=== PATIENT | male | born 1950 | race African-American/Black ===

== ENCOUNTER 2021-05-05 18:48 | Emergency (ER) | payer MEDICARE ==
[~2021-05-05] VITALS: Ht 172.7 cm; Wt 85.7 kg
[~2021-05-05 18:48] MED LIST: DIAZ5TAB PO; HYDR-3164 PO; METO25TA4 PO
[2021-05-05] MEDS ORDERED: LABETALOL 20 MG/4 ML DISP.SYRIN. IVP ONE ×2 (18:58→19:30)
[2021-05-05] MEDS ORDERED: IV NORMAL SALINE 1000ML BAG 1,000 ML IV SCH (19:00)
[2021-05-05 19:24] LABS: BASO % 1 % (0-3); CALCIUM 9.5 mg/dL (8.5-10.1); CREATININE 1.6 mg/dL (0.7-1.3); EOS # 0.2 x10^3/uL (0.0-0.7); EOS % 4 % (0-3); GFR 51.8; HEMOGLOBIN 14.2 g/dL (13.0-17.5); LYMPH # 1.9 x10^3/uL (1.0-4.8); LYMPH % 35 % (24-48); MEAN CORPUSCULAR HEMOGLOBIN 31 pg (25-35); MEAN CORPUSCULAR HGB CONC 33 g/dL (31-37); MEAN CORPUSCULAR VOLUME 93 fL (79-100); MONO # 0.6 x10^3/uL (0.0-1.1); MONO % 11 % (0-9); NEUT # 2.7 x10^3/uL (1.8-7.7); NEUT % 49 % (31-73); PLATELET COUNT 197 x10^3/uL (140-400); RED BLOOD COUNT 4.64 x10^6/uL (4.30-5.70); RED CELL DISTRIBUTION WIDTH 13.6 % (11.5-14.5); WHITE BLOOD COUNT 5.5 x10^3/uL (4.0-11.0)
[2021-05-05 19:25] LABS: PROTHROMBIN TIME PATIENT 14.6 SEC (11.7-14.0)
--- NOTE | 2021-05-05 19:25 | RAD ---
Exam: CT head INDICATION: Stroke TECHNIQUE: Sequential axial images through the head were obtained without the administration of IV co ntrast. Exposure: One or more of the following in the visualized dose reduction techniques were utilized for this examination: 1. Automated exposure control 2. Adjustment of the MA and/or KV according to patient size 3. Use of iterative of reconstructive technique Comparisons: 10/16/2015 FINDINGS: No focal parenchymal lesion or hemorrhage is identified. There is no midline shift or sulcal effaceme nt. Patchy hypodensity in the periventricular white matter particularly in the left frontal and parietal region. No acute vascular territory infarction is identified. Lane-white distinction is preserved. The ventricular system is within normal limits without compression hydrocephalus. The basal cisterns are well maintained. The visualized portions of the paranasal sinuses and mastoid air cells are well-pneumatized. No acute fractures. IMPRESSION: 1. Small vessel ischemic change particularly in the left frontal lobe, technically age indeterminate without recent prior exam. Difficult to exclude acute ischemia. 2. No intracranial hemorrhage. FOR INTERNAL CODING PURPOSES Critical result: Findings discussed with MILY MAYFIELD MD at 05/05/2021 7:18 PM. RESULT CODE: (C) Electronically signed by: Néstor Whitmore MD (05/05/2021 7:22 PM) [facility]
[2021-05-05] MEDS ORDERED: ALTEPLASE 7.7 MG IV ONE (19:30)
[2021-05-05] MEDS ORDERED: LABETALOL 20 MG/4 ML DISP.SYRIN. IVP PRN (19:30)
[2021-05-05] MEDS ORDERED: IV NORMAL SALINE 100ML 100 ML IV ONE (19:30)
[2021-05-05] MEDS ORDERED: ALTEPLASE IV ONE (19:30)
--- NOTE | 2021-05-05 19:35 | PHYS DOC ---
Past Medical History Past Medical History: Hypertension Past Surgical History: No Surgical History Smoking Status: Current Every Day Smoker Alcohol Use: None Drug Use: None Adult General Chief Complaint Chief Complaint: SLURRED SPEECH HPI HPI The patient is a 71-year-old male with a history of hypertension, noncompliant with his blood pressure medication per , and without other medical problems for which he takes daily medication. 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 The patient was in his normal state of health earlier today. About 30 minutes prior to arrival he was in the kitchen with his getting ready for dinner when he was witnessed to stop speaking normally. His speech previously was normal and fluent but suddenly he could not get his words out correctly. noticed a right-sided facial droop as well, also brand-new. He has never had similar symptoms in the past. She drove him immediately to the hospital POV. Upon initial evaluation here in the emergency department patient is alert and ambulatory with a somewhat shuffling gait. He is significantly dysarthric and aphasic, but able to answer some simple questions. He has a right-sided facial droop and seems to have a left gaze deviation as well. NIHSS 6. Blood glucose 103. Vital signs notable for marked hypertension with initial blood pressure of around 240/140. Patient given a push dose of labetalol and sent to the CT scanner where initial head CT was read without bleed. Case discussed in detail with Dr. Olguin of neurology who recommends proceeding with tPA if blood pressure can be reduced to the appropriate range. I had a detailed conversation with the patient's and medical decision maker regarding alteplase. We discussed risks of alteplase administration including risk of catastrophic bleeding, minor bleeding and anaphylaxis. After detailed consideration of the risks and benefits of alteplase, patient's made an informed decision to proceed with alteplase if possible. Nicardipine drip started and blood pressure down to an appropriate range. Therefore, alteplase bolus administered and alteplase infusion started. Review of Systems Review of Systems A 12 point review of systems was completed and was negative except where noted in HPI above. Current Medications Current Medications Current Medications Medications (Trade) Dose Ordered Sig/Jacinda Start Time Stop Time Status Last Admin Dose Admin Alteplase, Recombinant 69.4 ml @ 69.4 mls/hr 1X ONCE 05/05/21 19:30 05/05/21 20:29 Labetalol HCl (Normodyne Iv Push) 10 mg PRN Q10MIN PRN 05/05/21 19:30 Nicardipine HCl 50 mg/Sodium Chloride 250 ml @ 25 mls/hr CONT PRN 05/05/21 19:00 05/05/21 19:42 25 MLS/HR Sodium Chloride 100 ml @ 100 mls/hr 1X ONCE 05/05/21 19:30 05/05/21 20:29 Allergies Allergies Allergies Coded Allergies Type Severity Reaction Last Updated Verified No Known Drug Allergies 03/01/15 No Physical Exam Physical Exam 71-year-old male appearing nontoxic and in no acute distress. Head is normocephalic and atraumatic. Neck is supple and nontender. Oropharynx is moist. Lungs are clear to auscultation at all stations. There is a normal S1 and S2 without rubs or gallops and capillary refill is appropriate, less than 2 seconds globally. Abdomen is soft, nontender and nondistended. Skin is warm and dry without cyanosis, clubbing or edema. Psychiatrically, the patient demonstrates appropriate mood and affect and is alert. Neurologically, there is a right-sided facial droop, a left gaze deviation/slight right-sided neglect and significant dysarthria and aphasia. NIHSS 6. Strength and sensation are grossly intact to all 4 extremities. Current Patient Data Vital Signs Vital Signs Date Time Temp Pulse Resp B/P (MAP) Pulse Ox O2 Delivery O2 Flow Rate FiO2 05/05/21 19:08 86 249/116 05/05/21 18:50 98.0 18 96 Room Air 98.0 Lab Values Laboratory Tests Test 05/05/21 18:53 05/05/21 19:00 Glucose (Fingerstick) 103 mg/dL (70-99) H White Blood Count 5.5 x10^3/uL (4.0-11.0) Red Blood Count 4.64 x10^6/uL (4.30-5.70) Hemoglobin 14.2 g/dL (13.0-17.5) Hematocrit 43.0 % (39.0-53.0) Mean Corpuscular Volume 93 fL (79-100) Mean Corpuscular Hemoglobin 31 pg (25-35) Mean Corpuscular Hemoglobin Concent 33 g/dL (31-37) Red Cell Distribution Width 13.6 % (11.5-14.5) Platelet Count 197 x10^3/uL (140-400) Neutrophils (%) (Auto) 49 % (31-73) Lymphocytes (%) (Auto) 35 % (24-48) Monocytes (%) (Auto) 11 % (0-9) H Eosinophils (%) (Auto) 4 % (0-3) H Basophils (%) (Auto) 1 % (0-3) Neutrophils # (Auto) 2.7 x10^3/uL (1.8-7.7) Lymphocytes # (Auto) 1.9 x10^3/uL (1.0-4.8) Monocytes # (Auto) 0.6 x10^3/uL (0.0-1.1) Eosinophils # (Auto) 0.2 x10^3/uL (0.0-0.7) Basophils # (Auto) 0.0 x10^3/uL (0.0-0.2) Prothrombin Time 14.6 SEC (11.7-14.0) H Prothrombin Time INR 1.1 (0.8-1.1) Activated Partial Thromboplast Time 30 SEC (24-38) Sodium Level 145 mmol/L (136-145) Potassium Level 4.0 mmol/L (3.5-5.1) Chloride Level 103 mmol/L (98-107) Carbon Dioxide Level 31 mmol/L (21-32) Anion Gap 11 (6-14) Blood Urea Nitrogen 18 mg/dL (8-26) Creatinine 1.6 mg/dL (0.7-1.3) H Estimated GFR (Cockcroft-Gault) 51.8 Glucose Level 103 mg/dL (70-99) H Calcium Level 9.5 mg/dL (8.5-10.1) Troponin I High Sensitivity 243 ng/L (4-75) H Laboratory Tests 05/05/21 19:00 Laboratory Tests 05/05/21 19:00 EKG EKG Sinus rhythm, rate 87, no acute ST elevation, ST depressions to lateral leads, new versus prior, EP interpretation. Radiology/Procedures Radiology/Procedures Exam: CT head INDICATION: Stroke TECHNIQUE: Sequential axial images through the head were obtained without the administration of IV contrast. Exposure: One or more of the following in the visualized dose reduction techniques were utilized for this examination: 1. Automated exposure control 2. Adjustment of the MA and/or KV according to patient size 3. Use of iterative of reconstructive technique Comparisons: 10/16/2015 FINDINGS: No focal parenchymal lesion or hemorrhage is identified. There is no midline shift or sulcal effacement. Patchy hypodensity in the periventricular white matter particularly in the left frontal and parietal region. No acute vascular territory infarction is identified. Lane-white distinction is preserved. The ventricular system is within normal limits without compression hydrocephalus. The basal cisterns are well maintained. The visualized portions of the paranasal sinuses and mastoid air cells are well- pneumatized. No acute fractures. IMPRESSION: 1. Small vessel ischemic change particularly in the left frontal lobe, technically age indeterminate without recent prior exam. Difficult to exclude acute ischemia. 2. No intracranial hemorrhage. FOR INTERNAL CODING PURPOSES Critical result: Findings discussed with MILY MAYFIELD MD at 05/05/2021 7:18 PM. RESULT CODE: (C) Electronically signed by: Néstor Pacheco MD (05/05/2021 7:22 PM) [facility] DICTATED and SIGNED BY: NÉSTOR PACHECO MD DATE: 05/05/21 [id number] 0 Exam: CTA head and neck INDICATION: Stroke TECHNIQUE: Sequential axial images through the head and neck obtained following the administration of 75 mL of Isovue-370 IV contrast. Sagittal and coronal reformatted images were reconstructed from the axial data and reviewed. 3-D reformatted images were reconstructed from the axial data and reviewed. Exposure: One or more of the following in the visualized dose reduction techniques were utilized for this examination: 1. Automated exposure control 2. Adjustment of the MA and/or KV according to patient size 3. Use of iterative of reconstructive technique Comparisons: CT head without contrast same day FINDINGS: CTA NECK: Visualized portions of the thoracic aorta are unremarkable. Two-vessel aortic arch configuration common origin of the brachycephalic and left common carotid artery. Right common carotid artery is patent without evidence of stenosis, occlusion or aneurysm. Cervical segment of the right internal carotid artery are patent without evidence of stenosis, occlusion or aneurysm. Left common carotid artery is patent without evidence of stenosis, occlusion or aneurysm. Cervical segment left internal carotid artery is patent without evidence of stenosis, occlusion or aneurysm. Right vertebral artery is patent to the basilar confluence without evidence of stenosis, occlusion or aneurysm. Left vertebral artery is patent. No evidence of stenosis or occlusion. Visualized paraspinal soft tissues are unremarkable. CTA HEAD: Minimal calcified plaque cavernous segment of the right internal carotid artery without significant stenosis. Right MCA is patent. Right KENZIE is patent. Minimal calcified plaque cavernous segment left internal carotid artery without significant stenosis. Left MCA is patent. Left KENZIE is patent. Basilar artery is patent without evidence of stenosis, occlusion or aneurysm. 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 IMPRESSION: 1. No large vessel occlusion. 2. Mild calcified plaque at the cavernous segment of the internal carotid arteries bilaterally without significant stenosis. FOR INTERNAL CODING PURPOSES Critical result: Findings discussed with MILY MAYFIELD MD at 05/05/2021 7:43 PM. RESULT CODE: (C) Electronically signed by: Néstor Pacheco MD (05/05/2021 7:45 PM) [facility] DICTATED and SIGNED BY: NÉSTOR PACHECO MD DATE: 05/05/21 [id number] 0 Course & Med Decision Making Course & Med Decision Making Labs remarkable for evidence of probable demand ischemia in the setting of hypertensive urgency/emergency with elevated troponin without chest pain. Consistent with this, some new lateral ST depressions are noted on EKG. Labs otherwise nonacute. CT angiography of the head and neck without evidence of LVO or other significant acute process. Patient has received his alteplase bolus and is on the drip at this time. Serial neurochecks revealed no change in mental status or neurologic exam thus far. We have no ICU beds available at this facility at this time for post tPA neurologic monitoring. Therefore, decision made to transfer. has no ICU beds available. Contact made with [facility]; spoke with stroke neurologist there Dr. Nunez who is in agreement with tPA and will follow closely upon the patient's arrival to the receiving center. Graciously accepted in transfer to [facility] by Dr. Chuck Stephens. CC TIME 125 MINUTES. Shona Disclaimer Shona Disclaimer This electronic medical record was generated, in whole or in part, using a voice recognition dictation system. Departure Departure Impression: Primary Impression: Acute ischemic stroke Additional Impressions: Hypertensive emergency Demand ischemia Disposition: 02 SHORT TERM HOSPITAL Condition: CRITICAL Referrals: UNKNOWN PCP NAME (PCP) Problem Qualifiers MILY MAYFIELD MD May 05, 2021 19:35
[2021-05-05] MEDS ORDERED: IOHEXOL 350 MG/ML 100 ML VIAL. IV ONE (19:45)
--- NOTE | 2021-05-05 19:47 | RAD ---
Exam: CTA head and neck INDICATION: Stroke TECHNIQUE: Sequential axial images through the head and neck obtained following the administration of 75 mL of Isovue-370 IV contrast. Sagittal and coronal reformatted images were reconstructed from the axial data and reviewed. 3-D reformatted images were reconstructed from the axial data and reviewed. Exposure: One or more of the following in the visualized dose reduction techniques were utilized for this examination: 1. Automated exposure control 2. Adjustment of the MA and/or KV according to patient size 3. Use of iterative of reconstructive technique Comparisons: CT head without contrast same day FINDINGS: CTA NECK: Visualized portions of the thoracic aorta are unremarkable. Two-vessel aortic arch configuration comm on origin of the brachycephalic and left common carotid artery. Right common carotid artery is patent without evidence of stenosis, occlusion or aneurysm. Cervical s egment of the right internal carotid artery are patent without evidence of stenosis, occlusion or ane urysm. Left common carotid artery is patent without evidence of stenosis, occlusion or aneurysm. Cervical se gment left internal carotid artery is patent without evidence of stenosis, occlusion or aneurysm. Right vertebral artery is patent to the basilar confluence without evidence of stenosis, occlusion or aneurysm. Left vertebral artery is patent. No evidence of stenosis or occlusion. Visualized paraspinal soft tissues are unremarkable. CTA HEAD: Minimal calcified plaque cavernous segment of the right internal carotid artery without significant s tenosis. Right MCA is patent. Right KENZIE is patent. Minimal calcified plaque cavernous segment left internal carotid artery without significant stenosis. Left MCA is patent. Left KENZIE is patent. Basilar artery is patent without evidence of stenosis, occlusion or aneurysm. home designer are patent bilater ally. IMPRESSION: 1. No large vessel occlusion. 2. Mild calcified plaque at the cavernous segment of the internal carotid arteries bilaterally witho ut significant stenosis. FOR INTERNAL CODING PURPOSES Critical result: Findings discussed with MILY MAYFIELD MD at 05/05/2021 7:43 PM. RESULT CODE: (C) Electronically signed by: Néstor Whitmore MD (05/05/2021 7:45 PM) [facility]
[2021-05-05] MEDS ORDERED: CONTRAST GIVEN. MC PRN (20:00)
--- NOTE | 2021-05-05 20:29 | RAD ---
Exam: Chest one view INDICATION: Stroke TECHNIQUE: Frontal view of the chest Comparisons: 02/19/2015 FINDINGS: The cardiomediastinal silhouette and pulmonary vessels are within normal limits. Diffuse increased interstitial opacities throughout the lungs. No pleural effusion. IMPRESSION: Mild increased interstitial opacities in lungs bilaterally, may relate to mild edema versus atypical infectious process. Electronically signed by: Néstor Whitmore MD (05/05/2021 8:26 PM) [facility]
[2021-05-05 20:36] VITALS: BP 167/75
--- NOTE | 2021-05-06 01:54 | EKG ---
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
== END 2021-05-05 22:58 | disposition short-term general hospital (02) ==
LOC: ER 18:48
DX: I63.9 Cerebral infarction, unspecified (principal); I10 Essential (primary) hypertension; Z20.822 Contact with and (suspected) exposure to COVID-19; M54.2 Cervicalgia; R51.9 Headache, unspecified; F17.200 Nicotine dependence, unspecified, uncomplicated
CPT/HCPCS: 36415; 70450; 70496; 70498; 71045; 80048; 82962; 84484; 85025; 85610; 85730; 87426; 93005; 96365; 96366; 96375; 99291; 99292; J3490; J7030; J7050; Q9967; U0003; U0005; J2997